=== PATIENT | female | born 1960 | race Caucasian/White ===

== ENCOUNTER → 2021-09-26 | Emergency (ER) | payer OTHER ==
[2021-09-26 20:45] VITALS: BP 194/124; BP 254/217; PULSE 85
[2021-09-26 20:47] LABS: BASO % 0.5 % (0.0-2.0); EOS # 0.2 K/mm3 (0.0-0.7); GRAN # 4.3 K/mm3 (1.4-6.5); GRAN % 58.1 % (42.2-75.2); HEMATOCRIT 40.7 % (37.0-47.0); HEMOGLOBIN 13.7 g/dl (12.5-16.0); LYMPH # 2.3 K/mm3 (1.2-3.4); LYMPH % 31.3 % (20.0-51.0); MEAN CELL VOLUME 86 fl (80.0-100.0); MEAN CORPUSCULAR HEMOGLOBIN 29 pg (27.0-31.0); MEAN CORPUSCULAR HGB CONC 34 g/dl (33.0-37.0); MEAN PLATELET VOLUME 9.7 fl (7.4-10.4); MONO # 0.6 K/mm3 (0.1-0.6); MONO % 7.7 % (1.7-9.3); PLATELET COUNT 348 K/mm3 (130-400); RED BLOOD COUNT 4.72 M/mm3 (4.10-5.30); REDCELL DISTRIBUTION WIDTH-CV 11.9 % (11.5-14.5)
[2021-09-26 20:53] LABS: PROTHROMBIN TIME 10.6 SECONDS (9.7-12.8)
[2021-09-26 21:00] VITALS: BP 221/147; PULSE 97
[2021-09-26 21:04] LABS: ALBUMIN 4.1 gm/dL (3.4-4.8); BILIRUBIN,TOTAL 0.5 mg/dL (0.2-1.2); CALCIUM 9.7 mg/dL (8.4-10.2); CREATININE, serum 0.79 mg/dL (0.57-1.11); POTASSIUM 3.1 mmol/L (3.5-4.5); TOTAL PROTEIN 7.6 gm/dL (6.2-8.1)
[2021-09-26 21:15] VITALS: BP 177/108; PULSE 79
--- NOTE | 2021-09-26 22:24 | NUR ---
Patient taken to CT upon arrival to ed then transferred to facility bed patient started on cardene upon arrival to ed room 7 for high sbp in 220's at 5g per hour, titration of cardene as per orders with goal sbp less than 160 iv started in left forearm updated by Dr Villanueva and decision made for intubation, able to visit with patient prior to intubation Prior to intbation patient able to open eyes
--- NOTE | 2021-09-26 22:42 | NUR ---
patient transferred to [facility] via [facility] leaving at 2210 attempted to call report to [facility] at that time spoke with Rosa M who stated that the receiving nurse would return my call [phone] return call received from Diana at [facility] and report given
[2021-09-26 23:45] VITALS: BP 174/93; PULSE 85
[2021-09-26 23:48] LABS: ARTERIAL BLD GAS O2 SATURATION 97.2 % (92-100); ARTERIAL BLD GAS TCO2 CT 23.2; ARTERIAL BLOOD GAS BASE EXCESS -2.1 (-2-2); ARTERIAL BLOOD GAS HCO3 22.1 meq/L (22-26); ARTERIAL BLOOD GAS PCO2 36.5 mmHg (35-45); ARTERIAL BLOOD GAS PO2 93.8 mmHg (80-100)
== END ==
LOC: COL.ER 20:10
PROVIDERS: Personal Emergency Response Attendant
DX: I62.9 Nontraumatic intracranial hemorrhage, unspecified (principal)
CPT/HCPCS: J1953; J7050

== ENCOUNTER 2022-02-17 09:45 | Outpatient (RCR) | payer OTHER | END 2022-02-18 | LOC: MKS.ESL.PT | DX: I69.920 Aphasia following unspecified cerebrovascular disease (principal); I69.951 Hemiplegia and hemiparesis following unspecified cerebrovascular disease affecting right dominant side ==

== ENCOUNTER → 2022-02-26 | Outpatient (CLI) | payer OTHER | LOC: COL.RAD 13:07 | DX: T14.90XA Injury, unspecified, initial encounter (principal); W19.XXXA Unspecified fall, initial encounter ==

== ENCOUNTER 2022-03-19 10:30 | Outpatient (RCR) | payer OTHER | END 2022-03-20 | LOC: MKS.ESL.PT | DX: G81.90 Hemiplegia, unspecified affecting unspecified side (principal); R47.01 Aphasia; Z86.73 Personal history of transient ischemic attack (TIA), and cerebral infarction without residual deficits ==

== ENCOUNTER 2022-04-16 10:30 | Outpatient (RCR) | payer OTHER | END 2022-04-20 | disposition home or self-care (01) | LOC: WSST | DX: G81.90 Hemiplegia, unspecified affecting unspecified side (principal); R47.01 Aphasia; Z86.73 Personal history of transient ischemic attack (TIA), and cerebral infarction without residual deficits ==

== ENCOUNTER 2022-05-19 10:30 | Outpatient (RCR) | payer OTHER | END 2022-05-20 | disposition home or self-care (01) | LOC: WSST | DX: I69.354 Hemiplegia and hemiparesis following cerebral infarction affecting left non-dominant side (principal); R74.01 Elevation of levels of liver transaminase levels ==

== ENCOUNTER 2022-06-18 10:30 | Outpatient (RCR) | payer OTHER | END 2022-06-20 | disposition home or self-care (01) | LOC: MKS.ESL.PT | DX: I69.351 Hemiplegia and hemiparesis following cerebral infarction affecting right dominant side (principal); I69.320 Aphasia following cerebral infarction ==

== ENCOUNTER → 2022-07-21 | Outpatient (RCR) | payer OTHER | END | disposition home or self-care (01) | LOC: WSST → MKS.ESL.PT 06-21 09:43 → WSST 06-23 10:30 → MKS.ESL.PT 06-25 09:45 → WSST 06-30 10:30 → MKS.ESL.PT 07-02 09:45 → MKS.ESL.OT 07-05 11:15 → WSST 07-07 10:30 → MKS.ESL.PT 07-16 09:45 → WSST 07-19 10:30 | DX: I69.351 Hemiplegia and hemiparesis following cerebral infarction affecting right dominant side (principal) ==

== ENCOUNTER 2023-01-17 09:45 | Outpatient (RCR) | payer OTHER | END 2023-01-18 | disposition home or self-care (01) | LOC: MKS.ESL.PT | DX: G81.90 Hemiplegia, unspecified affecting unspecified side (principal); R47.01 Aphasia; Z86.73 Personal history of transient ischemic attack (TIA), and cerebral infarction without residual deficits ==

== ENCOUNTER → 2023-02-01 | Outpatient (CLI) | payer OTHER | LOC: MHCPAIN 14:10 | DX: I63.9 Cerebral infarction, unspecified (principal); G81.90 Hemiplegia, unspecified affecting unspecified side; R25.2 Cramp and spasm | CPT/HCPCS: G0463 ==

== ENCOUNTER → 2023-02-15 | Outpatient (CLI) | payer OTHER | LOC: MHCPAIN 13:41 | DX: I63.9 Cerebral infarction, unspecified (principal); G81.91 Hemiplegia, unspecified affecting right dominant side; R25.2 Cramp and spasm | CPT/HCPCS: G0463 ==

== ENCOUNTER 2023-02-16 10:30 | Outpatient (RCR) | payer OTHER | END 2023-02-18 | disposition home or self-care (01) | LOC: WSST | DX: I69.351 Hemiplegia and hemiparesis following cerebral infarction affecting right dominant side (principal); I69.320 Aphasia following cerebral infarction; I69.390 Apraxia following cerebral infarction ==

== ENCOUNTER 2023-03-14 10:30 | Outpatient (RCR) | payer OTHER | END 2023-03-20 | disposition home or self-care (01) | LOC: WSST | DX: I69.320 Aphasia following cerebral infarction (principal); I69.390 Apraxia following cerebral infarction ==

== ENCOUNTER → 2023-03-15 | Outpatient (CLI) | payer OTHER | LOC: MHCPAIN 10:49 | DX: I63.9 Cerebral infarction, unspecified (principal); G81.90 Hemiplegia, unspecified affecting unspecified side; R25.2 Cramp and spasm | CPT/HCPCS: G0463 ==

== ENCOUNTER → 2023-04-20 | Outpatient (RCR) | payer OTHER | END | disposition home or self-care (01) | LOC: WSST | DX: I69.320 Aphasia following cerebral infarction (principal); I69.390 Apraxia following cerebral infarction; I69.351 Hemiplegia and hemiparesis following cerebral infarction affecting right dominant side ==

== ENCOUNTER 2023-07-18 09:45 | Outpatient (RCR) | payer OTHER | END 2023-07-21 | disposition home or self-care (01) | LOC: MKS.ESL.PT | DX: I69.320 Aphasia following cerebral infarction (principal); I69.390 Apraxia following cerebral infarction; I69.351 Hemiplegia and hemiparesis following cerebral infarction affecting right dominant side ==

== ENCOUNTER → 2024-01-03 | Outpatient (CLI) | payer OTHER | LOC: MHCPAIN 10:57 | DX: I63.9 Cerebral infarction, unspecified (principal); R25.2 Cramp and spasm; R47.1 Dysarthria and anarthria | CPT/HCPCS: G0463 ==